=== PATIENT | female | born 1960 | race Caucasian/White ===

== ENCOUNTER 2019-09-08 09:13 | Emergency (ER) | payer BC ==
[2019-09-08 09:26] VITALS: BP 128/78
--- NOTE | 2019-09-08 09:27 | ED ---
Throat Pain/Nasal Congestion - HPI Summary HPI Summary: This patient is a 59 year old female presenting to [facility] with a chief complaint of sore throat. Patient states "I think its just from dry air, but they wanted me to get checked out... I have never had strep throat before". Denies fever, chills, cough, CP, SOB. No known sick contacts. 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 Patient denies any contact with positive COVID patients or recent travel. - History of Current Complaint Time Seen by Provider: 09/08/19 09:15 Hx Obtained From: Patient Onset/Duration: Lasting Hours - Allergies/Home Medications Allergies/Adverse Reactions: Allergies Allergy/AdvReac Type Severity Reaction Status Date / Time No Known Allergies Allergy Verified 06/30/13 15:58 Home Medications: Home Medications Estradiol [Vivelle-Dot] 0.075 mg TD 06/30/13 [History Confirmed 06/30/13] Progesterone Micronized [Prometrium] 200 mg PO 06/30/13 [History Confirmed 06/30] Sertraline* [Zoloft*] 150 mg PO DAILY 06/30/13 [History Confirmed 06/30/13] buPROPion SR TAB* [Wellbutrin SR TAB*] 150 mg PO DAILY 06/30/13 [History Confirmed 06/30/13] PMH/Surg Hx/FS Hx/Imm Hx Endocrine/Hematology History: Denies: Hx Diabetes, Hx Anemia Cardiovascular History: Denies: Hx Hypertension, Hx Pacemaker/ICD GI History: Denies: Hx Jaundice History: Denies: Hx Renal Disease Sensory History: Denies: Hx Hearing Aid Psychiatric History: Denies: Hx Panic Disorder - Surgical History Surgery Procedure, Year, and Place: LEEP 2003 ENDOMETRIAL BIOPSY 2011; COLON RESECTION;BREAST REDUCTION;C4-5 FUSION;BILATERAL HIP REPLACEMENT;WISDOM TEETH EXTRACTION - Family History Known Family History: Positive: Cardiac Disease, Diabetes - Social History Substance Use Type: Reports: None Review of Systems Negative: Fever, Chills Positive: Sore Throat Negative: Chest Pain Negative: Shortness Of Breath, Cough All Other Systems Reviewed And Are Negative: Yes Physical Exam - Summary Physical Exam Summary: Constitutional: Well-developed, Well-nourished, Alert. (-) Distressed Skin: Warm, Dry HENT: Normocephalic; Atraumatic. Oropharynx slightly erythemitus. No exudates or tonsillar asymmetry. Eyes: Conjunctiva normal Neck: Musculoskeletal ROM normal neck. (-) JVD, (-) Stridor, (-) Tracheal deviation Cardio: Rhythm regular, rate normal, Heart sounds normal; Intact distal pulses; The pedal pulses are 2+ and symmetric. Radial pulses are 2+ and symmetric. (-) Murmur Pulmonary/Chest wall: Effort normal. (-) Respiratory distress, (-) Wheezes, (-) Rales Abd: Soft, (-) tenderness, (-) Distension, (-) Guarding, (-) Rebound Musculoskeletal: (-) Edema Lymph: (-) Cervical adenopathy Neuro: Alert, Oriented x3 Psych: Mood and affect Normal Triage Information Reviewed: Yes Vital Signs On Initial Exam: Temp Pulse Resp BP Pulse Ox 97.2 F 82 18 128/78 95 09/08/19 10:04 09/08/19 10:04 09/08/19 10:04 09/08/19 10:04 09/08/19 10:04 Vital Signs Reviewed: Yes Procedures - Sedation Patient Received Moderate/Deep Sedation with Procedure: No EENT Course/Dx - Course Course Of Treatment: This patient is a 59 year old female presenting to [facility] with a chief complaint of sore throat. Patient states "I think its just from dry air, but they wanted me to get checked out... I have never has strep throat before". Denies fever, chills, cough, CP, SOB. No known sick contacts. 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 Patient denies any contact with positive COVID patients or recent travel. Plan for discharge was discussed with the patient and she was agreeable with this plan. - Diagnoses Provider Diagnoses: Sore throat Discharge ED - Sign-Out/Discharge Documenting (check all that apply): Patient Departure - Discharge - Discharge Plan Condition: Stable Disposition: HOME Patient Education Materials: Pharyngitis (ED) Referrals: Itzel Henry NP [Primary Care Provider] - Additional Instructions: Return to ED with new or worsening symptoms. - Billing Disposition and Condition Condition: STABLE Disposition: Home - Attestation Statements Document Initiated by Scribe: Yes Documenting Scribe: Brandon Nova Provider For Whom Fifiibguerda is Documenting (Include Credential): Julito Francois DO Scribe Attestation: I, Brandon Nova, scribed for Julito Francois DO on 09/08/19 at 1022. Scribe Documentation Reviewed: Yes Provider Attestation: The documentation as recorded by the fifiibeBrandon accurately reflects the service I personally performed and the decisions made by me, Julito Francois DO Status of Scribe Document: Viewed
[2019-09-08] MEDS ORDERED: Lidocaine 2% VISCOUS* 15 ML UDC PO ONE (09:31)
== END 2019-09-08 10:04 | disposition home or self-care (01) ==
LOC: ED 09:13
DX: J02.9 Acute pharyngitis, unspecified (principal)
CPT/HCPCS: 99281